=== PATIENT | male | born 1975 | race Caucasian/White ===

== ENCOUNTER → 2016-08-08 | Outpatient (CLI) | payer BC, OTHER ==
[~2016-08-08] MED LIST: CELEXA20 MG PO; LISINOPRIL20 MG PO; PROBIOTIC1 EAC1 PO; UNICOMPLEX M TA1 TA1 PO
== END ==
LOC: RAD 11:20
DX: C62.92 Malignant neoplasm of left testis, unspecified whether descended or undescended (principal); J18.9 Pneumonia, unspecified organism

== ENCOUNTER → 2016-11-14 | Outpatient (CLI) | payer BC, OTHER | LOC: RAD 13:01 | DX: C82.92 Follicular lymphoma, unspecified, intrathoracic lymph nodes (principal) ==

== ENCOUNTER → 2018-02-12 | Outpatient (CLI) | payer BC, OTHER | LOC: RAD 13:34 | DX: C62.92 Malignant neoplasm of left testis, unspecified whether descended or undescended (principal) ==